=== PATIENT | female | born 1955 | race Caucasian/White ===

== ENCOUNTER → 2022-02-15 | Day surgery (SDC) | payer OTHER | END | disposition home or self-care (01) | LOC: JRADUS-SUR 11:09 | PROVIDERS: ATTEND Family Medicine | PROC: 0HBT3ZX Excision of Right Breast, Percutaneous Approach, Diagnostic (ICD-10-PCS; principal; 2022-02-15) | DX: D24.1 Benign neoplasm of right breast (principal); N63.10 Unspecified lump in the right breast, unspecified quadrant | CPT/HCPCS: 19083; 87899; 88305-TC; A4648 ==

== ENCOUNTER 2022-05-16 04:15 | Day surgery (SDC) | payer OTHER ==
[2022-05-15 11:59] VITALS: BMI 28.4
[2022-05-16 08:12] VITALS: TEMP 97.3
[2022-05-16] MEDS ORDERED: LIDOCAINE HCL 1%, 10 MG/ML (20ML VIAL) ONE (13:08)
[2022-05-16] MEDS ORDERED: DEXAMETHASONE SOD PHOSPHATE 4 MG/1 ML VIAL ONE (13:10)
[2022-05-16] MEDS ORDERED: LIDOCAINE HCL/PF 2% SDV 5ML VIAL ONE (13:10)
[2022-05-16] MEDS ORDERED: PROPOFOL 20 ML ONE (13:10)
[2022-05-16] MEDS ORDERED: MIDAZOLAM HCL 2 MG/2 ML SINGLE DOSE VIAL ONE (13:10)
[2022-05-16] MEDS ORDERED: LIDOCAINE HCL 1%, 10 MG/ML (20ML VIAL) INF ONE ×2 (13:31)
[2022-05-16] MEDS ORDERED: ceFAZolin SODIUM 1 GM VIAL IVPB ONE ×2 (13:36)
[2022-05-16] MEDS ORDERED: ceFAZolin SODIUM 1 GM VIAL ONE (13:36)
[2022-05-16] MEDS ORDERED: ISOSULFAN BLUE 50 MG/5 ML VIAL SQ ONE (13:42)
[2022-05-16] MEDS ORDERED: METHYLENE BLUE 50 MG/10 ML AMPUL ONE (13:48)
[2022-05-16] MEDS ORDERED: BACITRACIN 15 GM TUBE TOPICAL OINTMENT ONE (14:12)
[2022-05-16 14:59] VITALS: BP 115/56; PULSE 60
[2022-05-16] MEDS ORDERED: ONDANSETRON 4 MG/2 ML VIAL IVPUSH PRN (15:27)
[2022-05-16] MEDS ORDERED: oxyCODONE HCL 5 MG TABLET PO PRN ×2 (15:27)
[2022-05-16] MEDS ORDERED: LACTATED RINGERS SOLUTION 1,000 ML IV SCH (15:30)
== END 2022-05-16 15:35 | disposition home or self-care (01) ==
LOC: JASU-SURG 04:15
PROVIDERS: ATTEND Surgery
PROC: 0HBT0ZX Excision of Right Breast, Open Approach, Diagnostic (ICD-10-PCS; principal; 2022-05-16 11:00)
DX: N64.52 Nipple discharge (principal); D24.1 Benign neoplasm of right breast; N60.21 Fibroadenosis of right breast
CPT/HCPCS: 19281; 76098-TC-FY; 88307-TC; 88342-TC; Q9968